=== PATIENT | male | born 1965 | race Caucasian/White ===

== ENCOUNTER 2016-07-06 11:05 | Emergency (ER) | payer BC ==
--- NOTE | 2016-07-06 12:36 | ED CLINICAL REPORT ---
Clinical Report - Physicians/Mid Levels [facility] [address] [place] [address] 07/06/2016 11:08 Patient: TATY ABURTO Time Seen: 12:18; initial patient contact, initial documentation, patient care assumed. Arrived- By private vehicle. Historian- patient. HISTORY OF PRESENT ILLNESS Chief Complaint: ABNORMAL GLUCOSE. This started about 3 - 4 days and is now gone. (c/o increased urination and increased thirst through the night, last few days waking up in am with elevated sugars, 350-400, but then admits to gaining over 50lbs, not exercising, eating an entire bag of cuties except 4, lots of potatoes, c/o waking up with heals burning and that is how he knows his sugar is high). Similar symptoms previously: Chronically, milder. Recent medical care: Not recently seen/assessed. REVIEW OF SYSTEMS No fever, difficulty breathing, chest pain, abdominal pain or vomiting. No diarrhea. All systems otherwise negative, except as recorded above. PAST HISTORY See nurses notes. PROBLEMS: Chest Wall Pain. Sleep Apnea. Gastroesophageal Reflux Disease. Colitis. Hypertension. --11:49 Amber Yan R.N. ADDITIONAL SURGERIES: Tonsillectomy. --11:49 Amber Yan R.N. SOCIAL HISTORY Never smoker. Occasional alcohol use. No drug use. No recent travel. Is a local resident. FAMILY HISTORY Negative. ADDITIONAL NOTES The nursing notes have been reviewed with agreement regarding the chief complaint, HPI, ROS, PMH and patient medications and allergies. PHYSICAL EXAM Vital Signs: 07/06/2016 11:43 BP: 148/76. HR: 94. RR: 18. O2 saturation: 96%. Temp: 98.3 F. Pain level now: 10. Have been reviewed as normal and appear to be correct. Appearance: Alert. No acute distress. Eyes: Pupils equal, round and reactive to light. Eyes normal inspection. Neck: Normal inspection. Neck supple. CVS: Normal heart rate and rhythm. Heart sounds normal. Pulses normal. Respiratory: No respiratory distress. Breath sounds normal. Chest nontender. Abdomen: No visible injury. Soft and nontender. Moderately obese. Back: Normal inspection. Skin: Skin warm and dry. Normal skin color. No rash. Normal skin turgor. Extremities: Extremities exhibit normal ROM. No lower extremity edema. Neuro: Oriented X 3. No motor deficit. No sensory deficit. LABS, X-RAYS, AND EKG Bedside Tests: Glucose: mild hyperglycemia - 196 (performed at bedside). PROGRESS AND PROCEDURES Patient counseled in person regarding the patient's stable condition, test results and diagnosis. 12:36. Differential Diagnosis: Other possible considerations: dka, hyperglycemia, noncompliant dm, defective meter. Above considerations are based on history, physical exam and laboratory data. Differential diagnosis was discussed with patient. Disposition: Discharged home in good and improved condition (12:36). Condition: good and stable. CLINICAL IMPRESSION Mild hyperglycemia Normal exam upon presentation, while in the ED and at discharge. INSTRUCTIONS Warnings: GENERAL WARNINGS: Return or contact your physician immediately if your condition worsens or changes unexpectedly, if not improving as expected, or if other problems arise. Specifically return if problem worsens. Follow-up: Follow up with your doctor in about three days even if well. Call for an appointment. Summary of care provided to patient. Understanding of the discharge instructions verbalized by patient. (Electronically signed by Jazmine Fields A.R.N.P. 07/06/2016 14:12)
--- NOTE | 2016-07-06 12:36 | ED NURSING NOTES ---
Clinical Report - Nurses [facility] [address] [place] [address] 07/06/2016 11:08 Patient: TATY ABURTO TRIAGE Acuity: LEVEL 3. Chief Complaint: (High blood glucose. 480, unable to get down.). Alert. No acute distress. SEPSIS SCREEN: Sepsis Screen: negative. Negative (no infection suspected/documented). DENNIS COMA SCORE: Dennis Coma Scale: 15- eyes open spontaneously (4); best verbal response- oriented x 4 (5); best motor response- obeys commands (6). --11:50 Amber Yan R.N. 11:43 07/06/16. BP: 148/76. HR: 94. RR: 18. O2 saturation: 96%. Temp: 98.3 F. Pain level now: 01/12. --11:50 Amber Yan R.N. Weight: 134.7 kg stated. Height/Length: 66 inches Per Patient. BMI: 48. --11:44 Amber Yan R.N. Medications Lisinopril Oral 10 mg, daily. --11:46 Amber Yan R.N. Oxycodone 14mg 4 times a day . --11:46 Amber Yan R.N. Hctc . --11:47 Amber Yan R.N. MetFORMIN HCl Oral 500 mg, 2x a day. --11:47 Amber Yan R.N. Pravastatin Sodium Oral 10 mg, at bedtime. --11:47 Amber Yan R.N. Allergies No Known Drug Allergy. --11:46 Amber Yan R.N. Medication/allergy information source: the patient. --11:50 Amber Yan R.N. 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 PAST MEDICAL HX: Immunizations: status is unknown. SOCIAL HX: Never smoker. Alcohol use; consumes beer occasionally. No drug use. FALL RISK ASSESSMENT: Fall risk assessment completed. No fall risk identified. NUTRITIONAL RISK ASSESSMENT: The nutritional risk assessment revealed no deficiencies. FUNCTIONAL ASSESSMENT: Functional assessment: no impairments noted. LEARNING NEEDS ASSESSMENT: The learning needs assessment revealed no barriers. SKIN INTEGRITY ASSESSMENT: Skin integrity risk assessment completed. No skin integrity risk identified. --11:50 Amber Yan R.N. Primary physician ([place]). --11:52 Amber Yan R.N. PROBLEMS: Chest Wall Pain. Sleep Apnea. Gastroesophageal Reflux Disease. Colitis. Hypertension. --11:49 Amber Yan R.N. ADDITIONAL SURGERIES: Tonsillectomy. --11:49 Amber Yan R.N. Interventions ID band on patient. To room. --11:50 Amber Yan R.N. PHYSICAL ASSESSMENT Ambulatory to room. GENERAL / NEURO / PSYCH: Alert. Oriented X 4. Appears in no acute distress. HEENT: No facial asymmetry noted. Mucous membranes are pink. RESPIRATORY: Respirations not labored. CVS: Capillary refill less than 2 seconds. SKIN: Skin intact. Skin is warm and dry. Normal skin turgor. --11:51 Amber Yan R.N. NURSING PROGRESS NOTES Two patient identifiers checked. Call light placed in reach. Side rails up x 2. Bed placed in lowest position. Brakes of bed on. Patient ready for evaluation. --11:51 Amber Yan R.N. Finger stick glucose: 196 mg/dL; performed by nurse. --12:02 Amber Yan R.N. DISPOSITION / DISCHARGE Condition at departure: improved. No learning barriers present. Discharge instructions provided and reviewed with the patient. Patient verbalized understanding. Written instructions provided in Icelandic. The patient was discharged home. He left the Emergency Department ambulatory and via private vehicle. Patient driving. Medication list reviewed and validated. --12:48 Amber Yan R.N. 12:27 07/06/16. BP: 136/74. HR: 89. RR: 20. O2 saturation: 98%. Temp: deferred. Pain level now: 11/12. 11:43 07/06/16. BP: 148/76. HR: 94. RR: 18. O2 saturation: 96%. Temp: 98.3 F. Pain level now: 01/12. --12:48 Amber Yan R.N. Locked/Released at 07/06/2016 12:49 by Amber Yan R.N.
--- NOTE | 2016-07-06 12:36 | ED NURSING NOTES ---
Clinical Report - Nurses [facility] [address] [place] [address] 07/06/2016 11:08 Patient: TATY ABURTO TRIAGE Acuity: LEVEL 3. Chief Complaint: (High blood glucose. 480, unable to get down.). Alert. No acute distress. SEPSIS SCREEN: Sepsis Screen: negative. Negative (no infection suspected/documented). DENNIS COMA SCORE: Dennis Coma Scale: 15- eyes open spontaneously (4); best verbal response- oriented x 4 (5); best motor response- obeys commands (6). --11:50 Amber Yan R.N. 11:43 07/06/16. BP: 148/76. HR: 94. RR: 18. O2 saturation: 96%. Temp: 98.3 F. Pain level now: 01/12. --11:50 Amber Yan R.N. Weight: 134.7 kg stated. Height/Length: 66 inches Per Patient. BMI: 48. --11:44 Amber Yan R.N. Medications Lisinopril Oral 10 mg, daily. --11:46 Amber Yan R.N. Oxycodone 14mg 4 times a day . --11:46 Amber Yan R.N. Hctc . --11:47 Amber Yan R.N. MetFORMIN HCl Oral 500 mg, 2x a day. --11:47 Amber Yan R.N. Pravastatin Sodium Oral 10 mg, at bedtime. --11:47 Amber Yan R.N. Allergies No Known Drug Allergy. --11:46 Amber Yan R.N. Medication/allergy information source: the patient. --11:50 Amber Yan R.N. 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 PAST MEDICAL HX: Immunizations: status is unknown. SOCIAL HX: Never smoker. Alcohol use; consumes beer occasionally. No drug use. FALL RISK ASSESSMENT: Fall risk assessment completed. No fall risk identified. NUTRITIONAL RISK ASSESSMENT: The nutritional risk assessment revealed no deficiencies. FUNCTIONAL ASSESSMENT: Functional assessment: no impairments noted. LEARNING NEEDS ASSESSMENT: The learning needs assessment revealed no barriers. SKIN INTEGRITY ASSESSMENT: Skin integrity risk assessment completed. No skin integrity risk identified. --11:50 Amber Yan R.N. Primary physician ([place]). --11:52 Amber Yan R.N. PROBLEMS: Chest Wall Pain. Sleep Apnea. Gastroesophageal Reflux Disease. Colitis. Hypertension. --11:49 Amber Yan R.N. ADDITIONAL SURGERIES: Tonsillectomy. --11:49 Amber Yan R.N. Interventions ID band on patient. To room. --11:50 Amber Yan R.N. PHYSICAL ASSESSMENT Ambulatory to room. GENERAL / NEURO / PSYCH: Alert. Oriented X 4. Appears in no acute distress. HEENT: No facial asymmetry noted. Mucous membranes are pink. RESPIRATORY: Respirations not labored. CVS: Capillary refill less than 2 seconds. SKIN: Skin intact. Skin is warm and dry. Normal skin turgor. --11:51 Amber Yan R.N. NURSING PROGRESS NOTES Two patient identifiers checked. Call light placed in reach. Side rails up x 2. Bed placed in lowest position. Brakes of bed on. Patient ready for evaluation. --11:51 Amber Yan R.N. Finger stick glucose: 196 mg/dL; performed by nurse. --12:02 Amber Yan R.N. DISPOSITION / DISCHARGE Condition at departure: improved. No learning barriers present. Discharge instructions provided and reviewed with the patient. Patient verbalized understanding. Written instructions provided in Sinhala. The patient was discharged home. He left the Emergency Department ambulatory and via private vehicle. Patient driving. Medication list reviewed and validated. --12:48 Amber Yan R.N. 12:27 07/06/16. BP: 136/74. HR: 89. RR: 20. O2 saturation: 98%. Temp: deferred. Pain level now: 11/12. 11:43 07/06/16. BP: 148/76. HR: 94. RR: 18. O2 saturation: 96%. Temp: 98.3 F. Pain level now: 01/12. --12:48 Amber Yan R.N. Locked/Released at 07/06/2016 12:49 by Amber Yan R.N.
--- NOTE | 2016-07-06 14:13 | ED MED RECONCILIATION SUMMARY ---
Patient: TATY ABURTO Medication Reconciliation Report [facility] VisitID: [id number] [address] [place] [address] 51y, M Registration Date/Time: 07/06/2016 Weight: 134.7 kg Height/Length: 66 in. BMI: 48.0 ALLERGIES: No Known Drug Allergy The patient's Home Medications are listed below: THE FOLLOWING MEDICATIONS NEED TO BE RECONCILED: Hctc Lisinopril Oral 10 mg, daily MetFORMIN HCl Oral 500 mg, 2x a day Oxycodone 14mg 4 times a day Pravastatin Sodium Oral 10 mg, at bedtime The source(s) of the original Home Medication information: patient The following Medications were given to the patient in the Emergency Department: None. The following Medications were prescribed to the patient: None.
--- NOTE | 2016-07-06 14:13 | ED MED RECONCILIATION SUMMARY ---
Patient: TATY ABURTO Medication Reconciliation Report [facility] VisitID: [id number] [address] [place] [address] 51y, M Registration Date/Time: 07/06/2016 Weight: 134.7 kg Height/Length: 66 in. BMI: 48.0 ALLERGIES: No Known Drug Allergy The patient's Home Medications are listed below: THE FOLLOWING MEDICATIONS NEED TO BE RECONCILED: Hctc Lisinopril Oral 10 mg, daily MetFORMIN HCl Oral 500 mg, 2x a day Oxycodone 14mg 4 times a day Pravastatin Sodium Oral 10 mg, at bedtime The source(s) of the original Home Medication information: patient The following Medications were given to the patient in the Emergency Department: None. The following Medications were prescribed to the patient: None.
--- NOTE | 2016-07-06 14:13 | ED MAR SUMMARY ---
..... Medication Administration Record [facility] [address] [place] [address] Patient: TATY ABURTO Visit ID: [id number] 51y, M Weight: 134.7 kg Height/Length: 66 in BMI: 48 ALLERGIES: No Known Drug Allergy
--- NOTE | 2016-07-06 14:13 | ED MAR SUMMARY ---
..... Medication Administration Record [facility] [address] [place] [address] Patient: TATY ABURTO Visit ID: [id number] 51y, M Weight: 134.7 kg Height/Length: 66 in BMI: 48 ALLERGIES: No Known Drug Allergy
--- NOTE | 2016-07-06 14:13 | ED DISCHARGE INSTRUCTIONS ---
Patient: TATY ABURTO General Instructions [facility] VisitID: [id number] [place] [address] 51y, M Registration Date/Time: 07/06/2016 Mild hyperglycemia Normal exam upon presentation, while in the ED and at discharge. INSTRUCTIONS Warnings: GENERAL WARNINGS: Return or contact your physician immediately if your condition worsens or changes unexpectedly, if not improving as expected, or if other problems arise. Specifically return if problem worsens. Follow-up: Follow up with your doctor in about three days even if well. Call for an appointment. Summary of care provided to patient. Understanding of the discharge instructions verbalized by patient. ADDITIONAL INFORMATION Normal Exam [6Yr - Adult] Based on your or your child's exam today, there are no signs of illness or injury. Be assured that the symptoms that worried you are normal. They do not suggest any illness requiring testing or treatment at this time. Home Care: You (or your child) can return to normal activities and diet. If you or your child have new or unusual symptoms not already discussed today, contact the doctor. Follow Up with the doctor for the next routine appointment. For more information: For childrens health information: www.kidshealth.org For adult health information: www.[email or web address].org Diabetes with High Blood Sugar You have been treated for high blood sugar (hyperglycemia). This may be becauseof an infection or other illness;eating too many sweets or starches ; not taking enough insulin. Home care High blood sugar may cause symptoms that you can learn to recognize, such as these: If you feel like your blood sugar may be too high, measure it using a blood or urine test. If it is above your usual range, use the "sliding scale"rRegular insulin dose your doctor gave you to correct this. If no "sliding scale" orders were given, contact your doctor for further advice. If your blood sugar is over 300, and you can't reach your doctor, go to the hospital emergency room. Monitor and write down your blood sugars - and insulin dose, if you take insulin - atleast twice a day. Do this before breakfast and before dinner. Do this for the next 3 to 5 days. Follow-up care Follow up with your health care provderduring the next week to review your blood sugar records. You will find out if you need to adjust your dose of insulin or other medicine for blood sugar. When to seek medical care Get prompt medical attention if either of these occur: High blood sugar.Symptoms are frequent urination, feeling dizzy, thirst, headache, nausea or vomiting, abdominal pain, and drowsiness or loss of consciousness. Low blood sugar. Symptoms are fatigue, headache, shakes, excess sweating, hunger, anxiety, reduced vision, drowsiness, weakness, confusion or loss of consciousness, and seizure. Diabetes (General Information) Cells of the body need glucose (sugar) for fuel. Insulin is the hormone in the body that lets glucose move from the blood into the cells. Diabetes is a chronic health condition where the body is not able to produce enough insulin, or does not respond well to its own insulin. Because the glucose in the blood cannot get into the cells, it builds up in the blood causing high blood sugar (hyperglycemia). Your actual blood sugar level is a result of the balance between several factors. These include what kind of food you eat and how much of it you eat, how much exercise you get, and the amount of insulin present in your body. Eating too much of the wrong kinds of food or not taking diabetes medicine on time can cause high blood sugar. Infections can cause high blood sugar even if you are taking medicines correctly. Missing meals, not eating enough food, or taking too much diabetes medicine can lead to low blood sugar. Untreated over long periods of time, diabetes can cause serious problems such as heart disease, stroke, kidney failure, blindness, nerve pain or loss of feeling in the legs and feet, and gangrene of the feet. With good treatment keeping your blood sugar under control, you can prevent or delay the complications of diabetes. Normal blood sugar levels are 70-130 one to two hours before a meal and not more than 180 two hours after a meal. Home Care: Follow your prescribed diabetic diet and take insulin or oral diabetic medicine exactly as ordered. Monitor blood sugars as advised. Keep a log of your results. This will help your doctor adjust your medicines to keep your blood sugar under control. Try to achieve your ideal weight. Proper diet and exercise can reduce or eliminate the need to take diabetes medicine. Avoid tobacco smoking, which worsens the effect of diabetes on your circulation. The risk of a heart attack in a diabetic is 15 times more likely if you smoke. Pay attention to good foot care. If you have lost feeling in your feet you may not notice an injury or infection. Check your feet and between your toes at least once a week. Wear a medical alert bracelet or carry a card in your wallet explaining that you are diabetic. In the event that you become very ill and are unable to give this information, it will help medical personnel provide proper care. If you become sick with a cold, the flu, or an infection (viral or bacterial), please do the following: Review your diabetes sick plan and contact your physician as instructed. You may have been advised to call the doctor immediately if: Your blood sugar is above 240 while taking your diabetes medication Your urine ketone levels are above normal or showing high levels of ketones You have been vomiting more than 6 hours You experience difficulty to trouble breathing You develop a high fever or you have had a fever for a couple of days and you aren't getting better You become light-headed and more sleepy than usual Keep taking your oral diabetes medicine (pills) even if you have been vomiting and feeling sick. Contact your doctor immediately for advice because you may need insulin to lower your blood sugar until you recover from your illness. Keep taking your insulin, even if you have been vomiting and feeling sick. Call your doctor immediately and ask if a temporary adjustment of your insulin dose is needed based on your blood glucose (sugar) results. Check your blood sugar every 2 to 4 hours, or at least 4 times a day. Check your keytones often. If you are vomiting and having diarrhea, monitor them more frequently. Don't skip meals. Try to eat small meals on a regular schedule, even if you do not have an appetite. Drink water or other calorie-free, non-caffeinated liquids to stay hydrated. If you are nauseated or vomiting, drink small amounts (sips, a teaspoon) every 5 minutes. To prevent dehydration, try to drink a cup or 8 ounces of fluids every hour while you are awake. Always carry a source of fast-acting sugar with you in case you get symptoms of low blood sugar (below 70). At the first sign of low blood sugar, eat or drink 15 to 20 grams of fast-acting sugar to raise your blood sugar. Examples include: 3 to 4 glucose tablets (found at most drugstores) 4 ounces (1/2 cup) of regular (not diet) softdrinks 4 ounces (1/2 cup) of any fruit juice 8 ounces (1 cup) of milk 5 to 6 pieces of hard candy 1 tablespoon of honey Check your blood sugar 15 minutes after treating yourself. If it is still low (below 70), take another 15 to 20 grams of fast-acting sugar. Test again in 15 minutes. If it returns to normal (70 or above), eat a snack or meal to keep your blood sugar in a safe range. If it remains low, call your doctor or go to an emergency room. Follow Up with your doctor as advised by our staff. For more information, contact the [employer]. www.diabetes.org or 416-827-7050. Get Prompt Medical Attention if any of the following occur: HIGH BLOOD SUGAR: frequent urination, dizziness, drowsiness, thirst, headache, nausea or vomiting, abdominal pain, vision changes, fast breathing, confusion or loss of consciousness LOW BLOOD SUGAR: fatigue, headache, shakes, excess sweating, hunger, feeling anxious or restless, vision changes, drowsiness, weakness, confusion or loss of consciousness Chest pain or shortness of breath Dizziness or fainting Weakness of an arm or leg or one side of the face Trouble with speech or vision You have been given the following additional information: Normal Exam, (Child) (Adult) Diabetic Hyperglycemia Diabetes, General Info (Electronically signed by Jazmine Fields A.R.N.P. 07/06/2016 14:12)
== END 2016-07-06 12:45 | disposition home or self-care (01) ==
LOC: ED SRH 11:05
DX: R73.9 Hyperglycemia, unspecified (principal); I10 Essential (primary) hypertension; K21.9 Gastro-esophageal reflux disease without esophagitis; Z79.899 Other long term (current) drug therapy

== ENCOUNTER 2016-11-19 10:51 | Outpatient (CLI) | payer BC ==
--- NOTE | 2016-11-19 11:50 | DIAGNOSTIC IMAGING REPORT ---
PROCEDURE: US VENOUS - RIGHT EXT INDICATION: R MEDIAL THIGH PAIN, ELEVATED D-DIMER TECHNIQUE: Duplex sonography of the deep venous system in the right lower extremity was performed. Compression and augmentation techniques were used. COMPARISON: None. FINDINGS: Each interrogated segment of deep vein from the common femoral vein into the calf veins demonstrates normal compressibility, augmentation and/or color Doppler flow without filling defect. No evidence of significant soft-tissue edema, soft-tissue mass or cyst. IMPRESSION: 1. No deep venous thrombosis in the right lower extremity. 2. Results will were called to Dr. Stein office
== END 2016-11-19 23:00 ==
LOC: US SRH 10:51
DX: M79.651 Pain in right thigh (principal); R79.1 Abnormal coagulation profile